=== PATIENT | female | born 1950 | race Caucasian/White ===

== ENCOUNTER 2022-03-02 20:27 | Emergency (ER) | payer MEDICARE, OTHER ==
[2022-03-02] MEDS ORDERED: Morphine 4 MG/ML VIAL ONE (21:12)
[2022-03-02 22:29] LABS: #Basophils 0.1 thou/uL (0.0-0.2); #Eosinphils 0.5 thou/uL (0.0-0.7); #Monocytes 0.9 thou/uL (0.11-0.59); #Neutrophils 4.8 thou/uL (1.40-6.50); %Basophils 0.7 % (0.0-1.0); %Lymphocytes 23.9 % (21.0-51.0); %Monocytes 11.4 % (0.0-10.0); Hemoglobin 13.7 g/dL (12.0-16.0); Mean Corpuscular HGB CONC 32.2 g/dL (32.0-36.0); Mean Corpuscular Hemoglobin 30.7 pg (27.0-31.0); Mean Corpuscular Volume 95.5 fl (78.0-98.0); Mean Platelet Volume 8.8 fL (7.4-10.4); Platelet Count 146 10x3/uL (130-400); RBC Distribution Width 13.8 % (11.5-14.5); Red Blood Cell (RBC) Count 4.46 mill/uL (4.20-5.40); White Blood Cell (WBC) Count 8.2 10x3/uL (4.8-10.8)
[2022-03-02] MEDS ORDERED: FENTANYL 50 MCG/ML 1 ML VIAL ONE ×2 (22:31)
[2022-03-03] MEDS ORDERED: Bacitracin 1 PK ONE (00:25)
[2022-03-03] MEDS ORDERED: FENTANYL 50 MCG/ML 1 ML VIAL ONE (00:25)
[2022-03-03 00:43] LABS: Albumin 3.9 g/dL (3.4-4.8)
[2022-03-03 00:44] LABS: Chloride 107 mmol/L (98-107); Potassium 5.1 mmol/L (3.5-5.1); Sodium 140 mmol/L (136-145)
[2022-03-03 00:45] LABS: Calcium 8.9 mg/dL (7.8-10.44)
[2022-03-03 00:46] LABS: Glucose 181 mg/dL (80-115); Protein, Total 6.9 g/dL (5.8-8.1)
[2022-03-03 00:47] LABS: Anion Gap 13 mmol/L (10-20); Bilirubin, Total 0.4 mg/dL (0.2-1.2); Carbon Dioxide 25 mmol/L (23-31)
[2022-03-03 00:48] LABS: Alkaline Phosphatase 58 U/L (40-110)
[2022-03-03 00:49] LABS: Calc. Creatinine Clearance 0 mL/min (70-130); Estimated GFR 50
[2022-03-03 00:50] LABS: BUN (Urea Nitrogen) 16 mg/dL (9.8-20.1)
[2022-03-03 00:51] LABS: AST (SGOT) 81 U/L (5-34)
[2022-03-03 00:52] LABS: ALT (SGPT) 72 U/L (8-55)
[2022-03-03] MEDS ORDERED: Ondansetron ODT 4 MG TAB ONE (00:56)
== END 2022-03-03 00:52 | disposition home or self-care (01) ==
LOC: ERS 20:27
DX: S42.202A Unspecified fracture of upper end of left humerus, initial encounter for closed fracture (principal); S00.81XA Abrasion of other part of head, initial encounter; S80.212A Abrasion, left knee, initial encounter; S80.211A Abrasion, right knee, initial encounter; E11.9 Type 2 diabetes mellitus without complications; E78.5 Hyperlipidemia, unspecified; W17.89XA Other fall from one level to another, initial encounter
CPT/HCPCS: 70450; 71045; 72100; 72125; 73030; 73060; 73564 ×2; 80053; 85025; 96374; 96375; 96376; 99284; J3010 ×2; 36415; J2270; Q0162